=== PATIENT | female | born 1980 | race Caucasian/White ===

== ENCOUNTER 2018-10-27 11:39 | Emergency (ER) | payer OTHER ==
[~2018-10-27] VITALS: Ht 167.6 cm; Wt 81.7 kg
[~2018-10-27 11:39] MED LIST: ADULT TUSS100 MG/5 M PO; AFRIN15 ML NS; AUGMENTIN 875875 MG PO; CIPRO500 MG PO; HYDROCORTISONE120 M4 TOP; MACROBID 100 M100 M1 PO; NAPROSYN500 MG PO; NOHOMEMEDICATIONS; NORCO 5-325 TA1 EACH PO; PREDNISONE 10 M10 MG PO; SUDAFED 12 HOU120 MG PO
[2018-10-27 13:11] VITALS: BP 124/79
== END 2018-10-27 13:10 | disposition home or self-care (01) ==
LOC: ER 11:39
DX: B34.9 Viral infection, unspecified (principal)

== ENCOUNTER 2018-11-09 17:58 | Emergency (ER) | payer OTHER ==
[~2018-11-09] VITALS: Ht 167.6 cm; Wt 81.7 kg
[2018-11-09 20:38] LABS: URINE BILIRUBIN NEGATIVE (Negative); URINE BLOOD TRACE (Negative); URINE CLARITY CLEAR; URINE COLOR YELLOW; URINE GLUCOSE-RANDOM* NEGATIVE (Negative); URINE KETONES TRACE (Negative); URINE LEUKOCYTES-REFLEX TRACE (Negative); URINE PROTEIN (DIPSTICK) NEGATIVE (Negative)
[2018-11-09 20:40] LABS: URINE NITRITE-REFLEX POSITIVE (Negative)
[2018-11-09] MEDS ORDERED: KEFLEX500 M1 PO (20:54)
[2018-11-09 21:04] LABS: AMORPHOUS URATES Few /LPF (None Seen); BACTERIA-REFLEX >30 Many /HPF (None Seen); CASTS None Seen /LPF (None Seen); SQUAMOUS 0-3 Few /LPF (0-3); URINE RBC 3-10 Few /HPF (0-2); URINE WBC-REFLEX >25 Many /HPF (0-5); WBC CLUMPS Many (None Seen)
[2018-11-09 21:27] VITALS: BP 108/62
== END 2018-11-09 21:28 | disposition home or self-care (01) ==
LOC: ER 17:58
PROVIDERS: Physician Assistant
DX: N39.0 Urinary tract infection, site not specified (principal); R51 Headache

== ENCOUNTER 2019-07-28 09:12 | Emergency (ER) | payer OTHER ==
[~2019-07-28] VITALS: Ht 165.1 cm; Wt 92.5 kg
[~2019-07-28 09:12] MED LIST changes: +KEFLEX500 M1 PO
[2019-07-28 10:28] VITALS: BP 134/90
== END 2019-07-28 10:32 | disposition home or self-care (01) ==
LOC: ER 09:12
DX: J06.9 Acute upper respiratory infection, unspecified (principal)

== ENCOUNTER 2020-01-29 16:58 | Inpatient (IN) | payer OTHER ==
[~2020-01-29] VITALS: Ht 165.1 cm; Wt 88.5 kg
[2020-01-29 17:01] VITALS: BP 132/86
[2020-01-29] MEDS ORDERED: ACID CONTROLLER20 MG PO (17:07)
[2020-01-29 17:24] LABS: URINE BILIRUBIN 1+ (Negative); URINE BLOOD NEGATIVE (Negative); URINE CLARITY CLEAR; URINE COLOR YELLOW; URINE GLUCOSE-RANDOM* NEGATIVE (Negative); URINE KETONES NEGATIVE (Negative); URINE NITRITE-REFLEX NEGATIVE (Negative); URINE PROTEIN (DIPSTICK) TRACE (Negative)
[2020-01-29 17:26] LABS: ICTOTEST (BILI CONFIRMATORY) Negative (Negative); URINE LEUKOCYTES-REFLEX 2+ (Negative)
[2020-01-29 17:41] LABS: MUCUS 4-6 Moderate strn/LPF (None Seen); SQUAMOUS >10 Many /LPF (0-3); URINE WBC-REFLEX >25 Many /HPF (0-5)
[2020-01-29 17:42] LABS: BACTERIA-REFLEX 1-9 Few /HPF (None Seen)
[2020-01-29 17:43] LABS: CASTS None Seen /LPF (None Seen); CRYSTALS None Seen /LPF (None Seen); URINE RBC 0-2 Rare /HPF (0-2)
[2020-01-29 18:12] LABS: ABSOLUTE NEUTROPHILS 7.2 thou/uL (1.4-8.2); BASOPHILS 0.4 % (0.0-2.0); EOSINOPHILS 0.6 % (0.0-3.0); HEMATOCRIT 38.8 % (37.0-47.0); HEMOGLOBIN 13.2 gm/dL (12.0-15.0); LYMPHOCYTES 22.1 % (24.0-44.0); MCH 29.9 pg (26.0-34.0); MCHC 34.1 g/dL (28.0-37.0); MCV 87.6 fL (80.0-100.0); MONOCYTES 7.5 % (1.0-8.0); PLATELET COUNT 252 thou/uL (150-400); POLYS 69.4 % (36.0-66.0); RBC 4.43 mil/uL (4.20-5.00); RDW 13.6 % (10.5-14.5); WBC 10.4 thou/uL (4.0-11.0)
[2020-01-29 18:18] LABS: CALCIUM 8.6 mg/dL (8.5-10.1); CREATININE 0.7 mg/dL (0.6-1.0); POTASSIUM 3.8 mmol/L (3.5-5.1)
[2020-01-29 18:30] LABS: ALBUMIN 3.8 g/dL (3.4-5.0); TOTAL BILIRUBIN 1.5 mg/dL (0.2-1.0); TOTAL PROTEIN 7.3 g/dL (6.4-8.2)
[2020-01-29 20:19] VITALS: BP 143/69
[2020-01-29 20:25] VITALS: BP 135/87
[2020-01-29 20:45] VITALS: BP 126/76
--- NOTE | 2020-01-30 03:39 | NUR ---
PT TO UNIT AROUND 2029. ORIENTED TO STAFF, UNIT AND USE OF CALL LIGHT. ADMISSION COMPLETED. NORMAL S1,S2, LUNG SOUNDS CLEAR, NO SKIN ISSUES. PT SPRAINED HER ANKLE A FEW WEEKS ABOUT AND IT IS WRAPPED AND ELAVATED. VSS. 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 PAIN BEING MANAGED WITH IV PAIN MEDS. NPO AT MIDNIGHT IN PREPARATION FOR POS SURGERY TODAY. NO COMPLAINTS OF N/V TONIGHT. CURRENTLY RESTING IN BED WITH EYES CLOSED.
[2020-01-30 03:45] VITALS: BP 107/66
[2020-01-30 05:40] LABS: ABSOLUTE NEUTROPHILS 5.5 thou/uL (1.4-8.2); BASOPHILS 0.5 % (0.0-2.0); EOSINOPHILS 0.9 % (0.0-3.0); HEMATOCRIT 33.6 % (37.0-47.0); LYMPHOCYTES 21.7 % (24.0-44.0); MCH 29.8 pg (26.0-34.0); MCHC 33.4 g/dL (28.0-37.0); MCV 89.2 fL (80.0-100.0); MONOCYTES 6.7 % (1.0-8.0); PLATELET COUNT 197 thou/uL (150-400); POLYS 70.2 % (36.0-66.0); RBC 3.77 mil/uL (4.20-5.00); RDW 13.9 % (10.5-14.5); WBC 7.8 thou/uL (4.0-11.0)
[2020-01-30 05:50] LABS: HEMOGLOBIN 11.2 gm/dL (12.0-15.0)
[2020-01-30 08:16] VITALS: BP 99/51
--- NOTE | 2020-01-30 08:17 | EKG ---
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 : 1980 Requested By: Anika Bravo Order Number: [id number] MD: Jose Guadalupe Dotson Measurements Intervals [place] Rate: 89 P: 34 MT: 177 QRS: 36 QRSD: 89 T: 38 QT: 366 QTc: 446 Interpretive Statements Sinus rhythm No significant abnormality No previous ECG available for comparison Electronically Signed On 01-30-2020 8:16:05 CDT by Jose Guadalupe Dotson [email or web address] <ELECTRONICALLY SIGNED> By: Jose Guadalupe Dotson MD, [facility] 01/30/20 0816 [id number] [id number] Jose Guadalupe Dotson MD, [facility] /EPI
--- NOTE | 2020-01-30 13:54 | NUR ---
ASSESSMENT: CM REVIEWED CHART AND SPOKE WITH PT. PT IS ALERT AND ORIENTED X4. PT WAS ADMITTED WITH CHOLELITHIASIS AND IS TO HAVE AN MRCP. PT REPORTS SHE LIVES IN A TOWNHOUSE WITH HER CHILDREN. PT REPORTS BEING FULLY INDEPENDENT WITH ADLS AND AMBULATION. PT REPORTS HAVING ABOUT 15 STEPS WITH HANDRAILS TO HER BEDROOMS. PT REPORTS THAT SHE CURRENTLY DOES NOT HAVE ANY INSURANCE AND SHE IS NOT CURRENTLY WORKING. CM NOTIFIED HER REFERRAL WOULD BE SENT TO [facility]. PT REPORTS SHE HAS A PCP THAT SHE SEES AT [facility]. SHE STATES HIS NAME IS DR. RODRIGUEZ BUT UNSURE OF THE FIRST NAME. PT ALSO HAS ELEVATED LFTS. CM WILL CONTINUE TO FOLLOW TO ASSIST NEEDED PT WILL LIKELY NEED HER GALLBLADDER REMOVED.
[2020-01-30 16:15] VITALS: BP 120/74
--- NOTE | 2020-01-30 16:56 | NUR ---
ASSUMED PT CARE AROUND 0710. PT ALERT X ORIENTED X4. NO N/V REPORTED TODAY. MRI ABDOMEN WITH MR CHOLANGIOPANCREATOGRAPHY WAS DONE TODAY. PT IS ON CLEAR LIQUID DIET TILL MIDNIGHT AND NPO FROM TODAY MIDNIGHT FOR SURGERY. PT IS RESTNG ON BED. IV ON RT AC WITH NS RUNNING AT 100ML/HR. PT IS INDEPENDENT, AMBULATES SELF. DOCTOR HAS EXPLAINED REGARDING SURGERY TO THE PATIENT. CONSENT FORM SIGNED. PT WILL CALL FOR HELP. WILL CONT TO MONITOR.
[2020-01-30 19:31] VITALS: BP 109/69
--- NOTE | 2020-01-31 03:09 | NUR ---
ASSUMED CARE OF THIS PT AT 1900. PT IS A/O X4 AND UP AD SHERRY. DID NOT COMPLAIN OF PAIN OR NAUSEA THIS SHIFT. CURRENTLY IS NPO ORDERED. CALL LIGHT WITHIN REACH.
[2020-01-31 04:39] VITALS: BP 100/62
[2020-01-31 06:47] LABS: CALCIUM 8.2 mg/dL (8.5-10.1); CREATININE 0.7 mg/dL (0.6-1.0); POTASSIUM 3.9 mmol/L (3.5-5.1); TOTAL BILIRUBIN 0.6 mg/dL (0.2-1.0); TOTAL PROTEIN 6.2 g/dL (6.4-8.2)
[2020-01-31 12:45] VITALS: BP 102/63
--- NOTE | 2020-01-31 12:58 | NUR ---
on-going assessment: pt had lap salo today. plans for possible discharge tomorrow. cm will continue to follow.
[2020-01-31 13:15] VITALS: BP 113/63
[2020-01-31 15:15] VITALS: BP 122/65
--- NOTE | 2020-01-31 15:27 | NUR ---
ASSUMED CARE OF THE PT AT 0700. PT RETURNED FROM SX WITH VS STABLE AND C/O PAIN YIN THE ABDOMEN AND BACK, PAIN MEDS GIVEN, SEE EMAR. NO N/V. PT ON RA. UP TO TOILET WITH STANDBY ASSIST. SCD'S AND MAY HOSE IN PLACE. PT ON REG DIET. 4 LAP SITES WITH DERMABOND DRY AND INTACT, NO DRAINAGE. PULSES STRONG AND LUNGS CLEAR. PT IS ON FALL PRECAUTIONS DUE TO MEDS, CALL LIGHT WITHIN REACH AND BED IN LOWEST POSITION/BED ALARM ON. WILL CONTINUE TO MONITOR THE PT.
[2020-01-31 21:30] VITALS: BP 135/79
[2020-02-01 00:20] VITALS: BP 119/63
--- NOTE | 2020-02-01 02:22 | NUR ---
ASSESSED AT START OF SHIFT PT RESTING IN BED. UP AD SHERRY TO THE BATHROOM PAIN MED GIVENX1. LAP SITE INTACT WITH DERMABOUND. IV INTACT AND FLUIDS INFUISING. ANTICIPATING D/C TOMORROW. MAURICIO DIET WELL. DENIES N/V. CALL LIGHT AT REACH AND WILL CONT TOMONITOR TILL EOS.
[2020-02-01 03:55] VITALS: BP 127/76
[2020-02-01 06:18] LABS: ALBUMIN 3.2 g/dL (3.4-5.0); CALCIUM 8.2 mg/dL (8.5-10.1); CREATININE 0.6 mg/dL (0.6-1.0); POTASSIUM 3.9 mmol/L (3.5-5.1); TOTAL BILIRUBIN 0.4 mg/dL (0.2-1.0); TOTAL PROTEIN 6.7 g/dL (6.4-8.2)
[2020-02-01 08:43] VITALS: BP 103/57
[2020-02-01] MEDS ORDERED: NORCO 5-325 TA1 EAC1 PO (09:12)
[2020-02-01 10:31] VITALS: BP 103/57
--- NOTE | 2020-02-01 10:43 | NUR ---
cm spoke with patient. PT HAS ORDERS TO DISCHARGE HOME TODAY. PT REPORTS SHE HAS NO NEEDS AT DISCHARGE AND HAS A RIDE HOME.
--- NOTE | 2020-02-01 10:51 | NUR ---
DISCUSSED DC INSTRUCTIONS, VERBALIZED UNDERSTANDING OF ALL MATERIAL. PRESCRIPTION FOR PAIN MEDICATION IS READY AT PATIENTS PREFERRED PHARMACY. IV HAD PREVIOUSLY BEEN REMOVED DUE TO INFILTRATION. AWAITING CLINICAL SOCIAL WORKER FROM HOSPITAL BY SIGNIFICANT OTHER.
--- NOTE | 2020-02-01 13:19 | NUR ---
LEFT UNIT @ 1145 IN WHEELCHAIR, AND WTH ALL PERSOANL BELONGINGS. TO BE TRANSPORTED HOME BY SIGNIFICANT OTHER VIA PRIVATE VEHICLE.
--- NOTE | 2020-02-01 16:07 | PATH ---
[facility] [address] [place] [address] PATHOLOGY RPT PROCEDURE Name: ENMA ROSARIO Room #: 448-P [facility] IN M.R.#: [id number] Admission: 01/29/20 Date of : 82 Discharge: 02/01/20 Report #: [id number] Path Case #: [id number] [facility] Accession Number: [id number] . 01 Material submitted: . gallbladder - GALLBLADDER . 01 Clinical history: . Symptomatic cholelithiasis. . 02 Diagnosis: Gallbladder, cholecystectomy: - Mild chronic cholecystitis. - Cholelithiasis. - Extensive cholesterolosis present. (IUV:pit 02/01/2020) OLT 02/01/2020 1231 Local . 02 Electronically signed: . Milena Patino MD, Pathologist NPI- [id number] . 01 Gross description: . Received in formalin labeled "Enma Rosario, gallbladder" is an intact cholecystectomy specimen measuring 7.8 x 3.4 x 2.1 cm. The serosa is pink-damon and smooth with focal hemorrhage and the specimen is opened to reveal green-brown mucosa with extensive yellow stippling. The mucosa is without polyps or masses. The average wall thickness is 0.3-0.5 cm. Multiple yellow-damon bosselated calculi are present, measuring in aggregate 1.8 x 0.8 x 0.8 cm and ranging from 0.1-0.8 cm in greatest dimension. [employer] System Administrator sections of the fundus and body and the cystic duct margin are submitted in A1. ([facility] [place]; 01/31/2020) [facility] 01/31/2020 1534 Local . 02 Pathologist provided ICD-10: K80.10, K82.4 . 02 CPT . 900425 Specimen Comment: A courtesy copy of this report has been sent to [phone] Specimen Comment: Report sent to Performed at: [address] [id number] MD Jerry Landry MD Phone: [phone] Performed at: 02 [facility] [address] [place] [address] PATHOLOGY RPT PROCEDURE Name: ENMA ROSARIO [facility] Room #: 448-P DIS IN M.R.#: [id number] Admission: 01/29/20 Date of : 82 Discharge: 02/01/20 Report #: [id number] Path Case #: [id number] [address] [facility], [place], [place] [id number] MD Milena Patino MD Phone: [phone]
== END 2020-02-01 11:49 | disposition home or self-care (01) | DRG 418 ==
LOC: ER 16:58 → EROBS 19:56 → 4S 19:56
PROVIDERS: Nurse Practitioner Family; Physician Assistant; ADMIT Hospitalist; ATTEND Hospitalist
PROC: BF121ZZ Fluoroscopy of Gallbladder using Low Osmolar Contrast (ICD-10-PCS; principal; 2020-01-31)
PROC: 0FT44ZZ Resection of Gallbladder, Percutaneous Endoscopic Approach (ICD-10-PCS; principal; 2020-01-31)
DX: K80.10 Calculus of gallbladder with chronic cholecystitis without obstruction (principal); N39.0 Urinary tract infection, site not specified; R74.0 Nonspecific elevation of levels of transaminase and lactic acid dehydrogenase [LDH]; K21.9 Gastro-esophageal reflux disease without esophagitis; E66.9 Obesity, unspecified; Z20.828 Contact with and (suspected) exposure to other viral communicable diseases; Z68.32 Body mass index [BMI] 32.0-32.9, adult; Z82.5 Family history of asthma and other chronic lower respiratory diseases
CPT/HCPCS: 10100; 10195; 50010; 50101; 50249; 50411; 50555; 50558; 52265; 52266; 53307; 53310; 53312; 54022; 54118; 55245; 56462; 56525; 56526; 56674; 62110; 62900; 70005